=== PATIENT | male | born 2005 | race Caucasian/White ===

== ENCOUNTER 2024-05-27 08:58 | Day surgery (SDC) | payer BC, SELFPAY ==
[2024-05-27] VITALS (9 sets, daily range): BP systolic 103–138; BP diastolic 47–65; PULSE 60–83; RESP 15–20; TEMP 36.6–37.3; O2SAT 99–100; BMI 21.0
--- NOTE | ~2024-05-27 | CT_ITS ---
EXAMINATION: CT ABDOMEN AND PELVIS WITH CONTRAST CLINICAL INFORMATION: Right lower quadrant pain. COMPARISON: None available. TECHNIQUE: Multidetector volumetric images were obtained from the superior aspect of the liver through the pubic symphysis following administration 85 mL of Omnipaque 350 intravenous contrast without reported immediate complications. Sagittal and coronal reformatted images were obtained on the technologist's workstation. Oral contrast: No This CT examination was performed using dose optimization techniques as appropriate, variously including the following: *Automated exposure control *Adjustment of mA and/or kV according to patient size (this includes techniques or standardized protocols for targeted exams where dose is matched to indication/reason for exam; i.e. extremities or head) *Use of iterative reconstruction technique DLP: 368 mGy-cm FINDINGS: LUNG BASES: No acute airspace disease or gross pulmonary nodules in the included lungs. LIVER, GALLBLADDER, AND BILIARY TREE: Liver measures 18 cm. No focal mass. Portal vein and hepatic veins are patent. Intrahepatic portion of the IVC is patent. Fluid-filled gallbladder without pericholecystic fluid collection or gallbladder wall thickening. No intrahepatic or extrahepatic biliary ductal dilatation. PANCREAS: No focal pancreatic lesion. No main pancreatic ductal dilatation. No peripancreatic fluid collections. SPLEEN: 10 cm. No focal lesion. ADRENAL GLANDS: No nodular lesions. KIDNEYS AND URETERS: Normal enhancement pattern. No gross mass. No hydronephrosis. BLADDER: Fluid-filled. GASTROINTESTINAL TRACT: Appendix measures 9 mm in maximum diameter and is fluid-filled. There are multiple radiopaque/metallic structures within the peritoneal cavity some of them perhaps intraluminal small bowel loops. No intestinal obstruction pattern. Trace amount of free fluid in the lower peritoneal pelvic cavity.. No pneumoperitoneum. No pneumatosis intestinalis. Abundant stool within the large intestine. ABDOMINAL WALL: No gross hernia. LYMPH NODES: No lymphadenopathy. VASCULAR: No aneurysm or dissection, abdominal aorta. PELVIC VISCERA: Nonenlarged prostate gland or seminal vesicles. OSSEOUS STRUCTURES: No acute fracture or listhesis. No lytic or blastic lesions. CT/CT abdomen pelvis w IV con IMPRESSION: Concerning early acute noncomplicated appendicitis in the correct clinical settings. Trace amount of free fluid, pelvic peritoneal cavity. Hepatomegaly. Fleischner guidelines were followed. Electronically signed by: Jesse Hedrick MD 05/27/2024 12:19 PM [facility] [place]
[2024-05-27 09:24] LABS: Basophils Percent Auto 0.3 % (0-2); Eosinophils Percent Auto 0.2 % (0-4); Hematocrit 41.6 % (42.0-52.0); Hemoglobin 14.5 g/dl (14.0-18.0); Imm Gran Abs Auto 0.03 X10*3/uL (0.00-0.03); Imm Gran Pct Auto 0.3 % (0.0-0.4); Lymphocytes Absolute Auto 1.7 X10*3/uL (1.2-4.9); Lymphocytes Percent Auto 14.4 % (20-40); MANUAL DIFF FLAG NO; Mean Corpuscular HGB Conc 34.9 g/dl (31.0-36.0); Mean Corpuscular Hemoglobin 29.7 pg (27.0-33.0); Mean Corpuscular Volume 85.1 fL (80.0-98.0); Mean Platelet Volume 11.8 fL (9.4-12.4); Monocytes Absolute Auto 1.1 X10*3/uL (0.1-1.2); Monocytes Percent Auto 9.3 % (2-11); Neutrophils Absolute Auto 8.7 x10*3/uL (2.0-8.3); Neutrophils Percent Auto 75.5 % (45-73); Platelet Count 173 X10*3/uL (160-400); Red Blood Count 4.89 X10*6/uL (4.60-5.80); Red Cell Distribution Width 12.6 % (11.0-16.0); White Blood Count 11.5 X10*3/uL (4.8-10.8)
[2024-05-27 09:40] LABS: Alanine Aminotransferase 18 U/L (0-40); Albumin Level 4.6 g/dL (3.5-5.0); Alkaline Phosphatase 118 U/L (39-117); Anion Gap 13 (12-20); Aspartate Amino Transferase 26 U/L (5-37); Bilirubin Total 0.7 mg/dL (0.0-1.0); Blood Urea Nitrogen 13 mg/dL (9-16); Calcium 9.6 mg/dL (8.4-10.2); Carbon Dioxide 25 mmol/L (22-29); Chloride 104 mmol/L (96-108); Creatinine Clr Calc Pharmacy 110.4; Estimated Glomerular Filt Rate > 60; Glucose Random 110 mg/dL (60-115); Sodium 138 mmol/L (135-145); Total Protein 7.5 g/dL (6.5-8.0)
--- NOTE | 2024-05-27 11:30 | ED_ITS ---
HPI - Abdominal Pain General Chief Complaint: Abdominal Pain Stated Complaint: abd pain Time Seen by Provider: 05/27/24 11:09 Source: patient Limitations: no limitations History of Present Illness ED Provider: Shahnaz Mejia PA-C HPI narrative: 18-year-old male with chronic constipation presents with right lower quadrant pain x1 day. Patient states overnight he developed discomfort, unable to describe the nature of the pain, however indicates it is constant and nonradiating. Pain worse with ambulation. Associated nausea and vomiting. Denies diarrhea, the patient states he is constipated. Denies fever, scrotal swelling or pain, no dysuria. Related Data Allergies Allergy/AdvReac Type Severity Reaction Status Date / Time No Known Allergies Allergy Verified 05/27/24 09:02 Review of Systems Review of Systems Yes all other systems are reviewed and are negative Constitutional: Denies fatigue and Denies fever(s) Cardiovascular: Denies chest pain Respiratory: Denies cough Gastrointestinal: Reports abdominal pain, Reports constipation, Denies diarrhea and Reports nausea Genitourinary: Denies hematuria, Denies dysuria, Denies scrotal swelling and Denies testicular pain Endocrine: Denies fatigue PMFSH Past Medical History Attestation statement: The following information was validated with the patient. Social History Social History Smoked in Last 30 Days: No Use of substances other than those prescribed or required for medical reasons: Yes Substance Use Type: Marijuana Substance Use Frequency: Occasionally Advance Directives: No Advance Directives Information Provided: No Physical Exam ED Vital Signs: Vital Signs - 24 hr 05/27/24 09:01 05/27/24 10:38 Temperature 98.1 F 97.8 F Pulse Rate 83 74 Respiratory Rate 20 18 Blood Pressure 138/65 118/52 L Pulse Oximetry 100 100 Oxygen Delivery Method Room Air Room Air BMI result Body Mass Index 21.0 Const Other: Alert, well in appearance Orientation/consciousness: patient oriented x3 Resp Other: Nonlabored respiration Cardio Other: Normal peripheral perfusion GI Other: Abdomen is soft, nondistended, Focal pain in the right lower quadrant without guarding, positive psoas sign, negative obturator, no rebound tenderness Skin Other: Warm dry no rash Neuro General: patient oriented x3, no focal motor deficits and CN's II-XI intact bilaterally Psych Other: Calm cooperative Course Reevaluation(s) Reevaluation #1: Spoke the radiologist, he is saying the patient has early uncomplicated appendicitis, I am waiting for the formal read before I called for surgical consult Time: 12:19 Consultations Consultation #1: sam Alvares Time: 12:27 Consultation #2: Dr. Alvares is taking the Pt to OR....I placed order ED to surg I already ordered antibiotics Time: 12:50 Medical Decision Making Medical Decision Making MDM Narrative: 18-year-old male with chronic constipation presents with right lower quadrant pain x1 day. Patient states overnight he developed discomfort, unable to describe the nature of the pain, however indicates it is constant and nonradiating. Pain worse with ambulation. Associated nausea. Denies diarrhea, the patient states he is constipated. Denies fever, scrotal swelling or pain, no dysuria. Problem: Constipation History: Per patient I have considered the following differential diagnoses: Constipation, obstruction, appendicitis, torsion , renal colic Plan: Screening labs were already obtained, overall unremarkable, he has a slight leukocytosis. Given distribution of discomfort, I am considering appendicitis. We will obtain a CT scan. Given focal pain, with positive psoas sign, and he did have episodes of vomiting, I do not think this is his chronic constipation at this time. He has no obstructive symptoms to suggest a bowel obstruction. He also has symptoms consistent with torsion, and no related symptoms that would suggest potential renal colic or UTI. I have independently reviewed the following tests: Labs: Slight leukocytosis, not anemic, no electrolyte abnormality CT abdomen and pelvis:EXAMINATION: CT ABDOMEN AND PELVIS WITH CONTRAST CLINICAL INFORMATION: Right lower quadrant pain. COMPARISON: None available. TECHNIQUE: Multidetector volumetric images were obtained from the superior aspect of the liver through the pubic symphysis following administration 85 mL of Omnipaque 350 intravenous contrast without reported immediate complications. Sagittal and coronal reformatted images were obtained on the technologist's workstation. Oral contrast: No This CT examination was performed using dose optimization techniques as appropriate, variously including the following: *Automated exposure control *Adjustment of mA and/or kV according to patient size (this includes techniques or standardized protocols for targeted exams where dose is matched to indication/reason for exam; i.e. extremities or head) *Use of iterative reconstruction technique DLP: 368 mGy-cm FINDINGS: LUNG BASES: No acute airspace disease or gross pulmonary nodules in the included lungs. LIVER, GALLBLADDER, AND BILIARY TREE: Liver measures 18 cm. No focal mass. Portal vein and hepatic veins are patent. Intrahepatic portion of the IVC is patent. Fluid-filled gallbladder without pericholecystic fluid collection or gallbladder wall thickening. No intrahepatic or extrahepatic biliary ductal dilatation. PANCREAS: No focal pancreatic lesion. No main pancreatic ductal dilatation. No peripancreatic fluid collections. SPLEEN: 10 cm. No focal lesion. ADRENAL GLANDS: No nodular lesions. KIDNEYS AND URETERS: Normal enhancement pattern. No gross mass. No hydronephrosis. BLADDER: Fluid-filled. GASTROINTESTINAL TRACT: Appendix measures 9 mm in maximum diameter and is fluid-filled. There are multiple radiopaque/metallic structures within the peritoneal cavity some of them perhaps intraluminal small bowel loops. No intestinal obstruction pattern. Trace amount of free fluid in the lower peritoneal pelvic cavity.. No pneumoperitoneum. No pneumatosis intestinalis. Abundant stool within the large intestine. ABDOMINAL WALL: No gross hernia. LYMPH NODES: No lymphadenopathy. VASCULAR: No aneurysm or dissection, abdominal aorta. PELVIC VISCERA: Nonenlarged prostate gland or seminal vesicles. OSSEOUS STRUCTURES: No acute fracture or listhesis. No lytic or blastic lesions. CT/CT abdomen pelvis w IV con IMPRESSION: Concerning early acute noncomplicated appendicitis in the correct clinical settings. Trace amount of free fluid, pelvic peritoneal cavity. Hepatomegaly. Fleischner guidelines were followed. Electronically signed by: Jesse Hedrick MD 05/27/2024 12:19 PM [facility] [place] Lab Data 05/27/24 09:14 05/27/24 09:14 Labs: Lab Results 05/27/24 Range/Units 09:14 WBC 11.5 H (4.8-10.8) X10*3/uL RBC 4.89 (4.60-5.80) X10*6/uL Hgb 14.5 (14.0-18.0) g/dl Hct 41.6 L (42.0-52.0) % MCV 85.1 (80.0-98.0) fL MCH 29.7 (27.0-33.0) pg MCHC 34.9 (31.0-36.0) g/dl RDW 12.6 (11.0-16.0) % Plt Count 173 (160-400) X10*3/uL MPV 11.8 (9.4-12.4) fL Immature Gran % (Auto) 0.3 (0.0-0.4) % Neut % (Auto) 75.5 H (45-73) % Lymph % (Auto) 14.4 L (20-40) % [place] % (Auto) 9.3 (2-11) % Eos % (Auto) 0.2 (0-4) % Baso % (Auto) 0.3 (0-2) % Lymph # (Auto) 1.7 (1.2-4.9) X10*3/uL [place] # (Auto) 1.1 (0.1-1.2) X10*3/uL Eos # (Auto) 0.0 (0.0-0.4) X10*3/uL Baso # (Auto) 0.0 (0.0-0.2) X10*3/uL Abs Immat Gran (auto) 0.03 (0.00-0.03) X10*3/uL Absolute Neuts (auto) 8.7 H (2.0-8.3) x10*3/uL Absolute Nucleated RBC 0.000 (0.0-0.012) X10*3/uL Nucleated RBC % (auto) 0.0 (0.0-0.2) /100WBC Sodium 138 (135-145) mmol/L Potassium 4.0 (3.3-5.1) mmol/L Chloride 104 (96-108) mmol/L Carbon Dioxide 25 (22-29) mmol/L Anion Gap 13 (12-20) BUN 13 (9-16) mg/dL Creatinine 1.07 (0.5-1.4) mg/dL Estim Creat Clear Calc 110.4 Estimated GFR > 60 Random Glucose 110 (60-115) mg/dL Calcium 9.6 (8.4-10.2) mg/dL Total Bilirubin 0.7 (0.0-1.0) mg/dL AST 26 (5-37) U/L ALT 18 (0-40) U/L Alkaline Phosphatase 118 H (39-117) U/L Total Protein 7.5 (6.5-8.0) g/dL Albumin 4.6 (3.5-5.0) g/dL Medications Administered Generic Name Dose Route Start Last Admin Trade Name Freq PRN Reason Stop Dose Admin Metronidazole 500 mg in 100 mls @ 100 mls/hr 05/27/24 12:31 05/27/24 12:49 Flagyl IV 05/27/24 13:30 100 mls/hr PREOP ONE Administration Discontinued Medications Generic Name Dose Route Start Last Admin Trade Name Bill PRN Reason Stop Dose Admin Ceftriaxone Sodium 2 gm 05/27/24 12:31 05/27/24 12:49 Ceftriaxone Sodium 2 Gm Vial IVPUSH 05/27/24 12:32 2 gm ONCE ONE Administration Iohexol 100 ml 05/27/24 11:39 05/27/24 11:40 Iohexol 350 Mg/Ml 100 Ml Infus..Btl IV 05/27/24 11:40 85 ml ONCE ONE Administration Ketorolac Tromethamine 15 mg 05/27/24 11:19 05/27/24 11:32 Ketorolac Tromethamine 15 Mg/Ml Vial IVPUSH 05/27/24 11:20 15 mg ONCE ONE Administration Discharge Plan Discharge Clinical Impression: Acute appendicitis Patient Disposition: Admitted As Inpatient Print Language: Frisian
[2024-05-27] MEDS: Ketorolac Tromethamine 15 MG/ML VIAL IVPUSH (11:32)
[2024-05-27] MEDS: iohexoL 350 MG/ML 100 ML INFUS..BTL IV (11:40)
[2024-05-27] MEDS: cefTRIAXone sodium 2 GM VIAL IVPUSH (12:49)
[2024-05-27] MEDS: metroNIDAZOLE/NS 500 MG/100 ML PIGGYBACK 100 MG IV (12:49)
--- NOTE | 2024-05-27 13:20 | PC.NURSE ---
Called OR to give report. STRONG NITRIC OPERATOR states that pt. does not have a time yet, and OR will call us for report when they're ready.
--- NOTE | 2024-05-27 14:16 | PC.NURSE ---
RN-to-RN report given to LELA Ospina in Short Stay. Bhavesh states they will be down to take pt. at appx. 15:30.
--- NOTE | 2024-05-27 14:51 | P.HPGS_ITS ---
History of Present Illness History of Present Illness Date of Service: 05/27/24 Chief complaint: Unspecified acute appendicitis Narrative: Joe Pickett is a 18 year old male who commenced/dealing with nonspecific periumbilical pain which has now relocated to right lower quadrant. He has ne joseph had chest pain before. He has not had any unusual diet. No foreign travel. No new drugs. No known sick contacts. Patient was otherwise healthy young man attending college. Chart was reviewed and patient evaluated PMFSH Social History Social History Smoked in Last 30 Days: No Use of substances other than those prescribed or required for medical reasons: Yes Substance Use Type: Marijuana Substance Use Frequency: Occasionally Advance Directives: No Advance Directives Information Provided: No Meds Allergies Allergy/AdvReac Type Severity Reaction Status Date / Time No Known Allergies Allergy Verified 05/27/24 09:02 Physical Exam Vital Signs: Vital Signs: Last Vital Signs Temp 97.8 F 05/27/24 10:38 Pulse 74 05/27/24 10:38 Resp 18 05/27/24 10:38 BP 118/52 L 05/27/24 10:38 Pulse Ox 100 05/27/24 10:38 O2 Del Method Room Air 05/27/24 10:38 BMI result Body Mass Index 21.0 Chest: Other: Chest breath sounds bilaterally, HS 1 in 2 GI: Other: Abdomen is soft, thin, scaphoid. Marked right lower quadrant localized rebound tenderness. Results Results Labs: Short CBC 05/27/24 Range/Units 09:14 WBC 11.5 H (4.8-10.8) X10*3/uL Hgb 14.5 (14.0-18.0) g/dl Hct 41.6 L (42.0-52.0) % Plt Count 173 (160-400) X10*3/uL BMP 05/27/24 09:14 Sodium 138 Potassium 4.0 Chloride 104 Carbon Dioxide 25 BUN 13 Creatinine 1.07 Calcium 9.6 Liver Function 05/27/24 Range/Units 09:14 Total Bilirubin 0.7 (0.0-1.0) mg/dL AST 26 (5-37) U/L ALT 18 (0-40) U/L Alkaline Phosphatase 118 H (39-117) U/L Albumin 4.6 (3.5-5.0) g/dL Assessment and Plan (1) Acute appendicitis: Status: Acute Plan History, and clinical exam, and CT scan findings were all consistent with acute appendicitis. Risks, benefits, and alternatives of laparoscopic possible open appendectomy were reviewed with the patient and included but not limited to bleeding, infection, recurrence, numbness, pain, scarring, bowel or bladder injury or leak and the patient wished to proceed. All questions answered. Arrangements were made for an add on for this case for today. Quality Stroke Does the patient have a stroke diagnosis?: No VTE Prior VTE?: No VTE Risk Level:: Surgical - low VTE Device Contraindication: N/A - Device Ordered VTE Drug Contraindication: Treatment Not Indicated Procedures Date of Service Date of Service: 05/27/24
--- NOTE | 2024-05-27 14:59 | PC.NURSE ---
Pt. picked up by Short Stay
--- NOTE | 2024-05-27 15:41 | P.CONAN_ITS ---
COUNTS INCLUDE 234 BEDS AT THE [facility] Active Problems Active Problems: All Active Problems Acute appendicitis (Acute) Past Medical History Functional capacity: independent ambulation Family History Family history of problems with anesthesia: No Surgical History Surgical History History of facial surgery History of Problems with Anesthesia: No Social History Social History Patient Tobacco Use Status: Never used Tobacco Smoked in Last 30 Days: No Use of substances other than those prescribed or required for medical reasons: Yes Substance Use Type: Marijuana Substance Use Type Other:: last used 05/26 pm Substance Use Frequency: Occasionally Are you DNR?: No Advance Directives: No Advance Directives Information Provided: No Meds Allergies Allergy/AdvReac Type Severity Reaction Status Date / Time No Known Allergies Allergy Verified 05/27/24 09:02 Exam Height,Weight and Vital Signs: Height 6 ft Weight 70.307 kg Last Vital Signs Temp 99.1 F 05/27/24 15:03 Pulse 69 05/27/24 15:03 Resp 15 05/27/24 15:03 BP 122/58 L 05/27/24 15:03 Pulse Ox 99 05/27/24 15:03 O2 Del Method Room Air 05/27/24 15:03 Pertinent Lab Results Pertinent Lab Results: Laboratory Tests 05/27/24 09:14 WBC 11.5 H RBC 4.89 Hgb 14.5 Hct 41.6 L MCV 85.1 MCH 29.7 MCHC 34.9 RDW 12.6 Plt Count 173 MPV 11.8 Immature Gran % (Auto) 0.3 Neut % (Auto) 75.5 H Lymph % (Auto) 14.4 L [place] % (Auto) 9.3 Eos % (Auto) 0.2 Baso % (Auto) 0.3 Lymph # (Auto) 1.7 [place] # (Auto) 1.1 Eos # (Auto) 0.0 Baso # (Auto) 0.0 Abs Immat Gran (auto) 0.03 Absolute Neuts (auto) 8.7 H Absolute Nucleated RBC 0.000 Nucleated RBC % (auto) 0.0 Sodium 138 Potassium 4.0 Chloride 104 Carbon Dioxide 25 Anion Gap 13 BUN 13 Creatinine 1.07 Estim Creat Clear Calc 110.4 Estimated GFR > 60 Random Glucose 110 Calcium 9.6 Total Bilirubin 0.7 AST 26 ALT 18 Alkaline Phosphatase 118 H Total Protein 7.5 Albumin 4.6 Airway TM Dist: >3cm Neck ROM: Full Heart: RRR Lungs: CTA Assessment and Plan Assessment Anesthesia Assessment: Anesthesia Plan Discussed, Smoking Cess. Discussed and Chart Reviewed Final Anesthetic Review Family History of Problems with Anesthesia: No History of Problems with Anesthesia: No NPO: Yes ASA Class: II and Emergency Final Preanesthetic Review: Meds/Allgs Chart Reviewed, Consent Obtained/Reviewed and Anes Risks/Benef Reviewed Patient Risk: Low Procedure Risk: Low Anesthetic Plan Anesthetic Plan: GA Disposition: Standard PACU
--- NOTE | 2024-05-27 17:02 | P.CONAN_ITS ---
[facility] [place] Active Problems Active Problems: All Active Problems Acute appendicitis (Acute) Past Medical History Functional capacity: independent ambulation Family History Family history of problems with anesthesia: No Surgical History Surgical History History of facial surgery History of Problems with Anesthesia: No Social History Social History Patient Tobacco Use Status: Never used Tobacco Smoked in Last 30 Days: No Use of substances other than those prescribed or required for medical reasons: Yes Substance Use Type: Marijuana Substance Use Type Other:: last used 05/26 pm Substance Use Frequency: Occasionally Are you DNR?: No Advance Directives: No Advance Directives Information Provided: No Meds Allergies Allergy/AdvReac Type Severity Reaction Status Date / Time No Known Allergies Allergy Verified 05/27/24 09:02 Exam Height,Weight and Vital Signs: Height 6 ft Weight 70.307 kg Last Vital Signs Temp 99.1 F 05/27/24 15:03 Pulse 69 05/27/24 15:03 Resp 15 05/27/24 15:03 BP 122/58 L 05/27/24 15:03 Pulse Ox 99 05/27/24 15:03 O2 Del Method Room Air 05/27/24 15:03 Pertinent Lab Results Pertinent Lab Results: Laboratory Tests 05/27/24 09:14 WBC 11.5 H RBC 4.89 Hgb 14.5 Hct 41.6 L MCV 85.1 MCH 29.7 MCHC 34.9 RDW 12.6 Plt Count 173 MPV 11.8 Immature Gran % (Auto) 0.3 Neut % (Auto) 75.5 H Lymph % (Auto) 14.4 L [place] % (Auto) 9.3 Eos % (Auto) 0.2 Baso % (Auto) 0.3 Lymph # (Auto) 1.7 [place] # (Auto) 1.1 Eos # (Auto) 0.0 Baso # (Auto) 0.0 Abs Immat Gran (auto) 0.03 Absolute Neuts (auto) 8.7 H Absolute Nucleated RBC 0.000 Nucleated RBC % (auto) 0.0 Sodium 138 Potassium 4.0 Chloride 104 Carbon Dioxide 25 Anion Gap 13 BUN 13 Creatinine 1.07 Estim Creat Clear Calc 110.4 Estimated GFR > 60 Random Glucose 110 Calcium 9.6 Total Bilirubin 0.7 AST 26 ALT 18 Alkaline Phosphatase 118 H Total Protein 7.5 Albumin 4.6 Airway Mallampati Class: II TM Dist: >3cm Neck ROM: Full Heart: RRR Lungs: CTA Assessment and Plan Assessment Anesthesia Assessment: Anesthesia Plan Discussed, Smoking Cess. Discussed and Chart Reviewed Final Anesthetic Review Family History of Problems with Anesthesia: No History of Problems with Anesthesia: No NPO: Yes ASA Class: II and Emergency Final Preanesthetic Review: Meds/Allgs Chart Reviewed, Consent Obtained/Reviewed and Anes Risks/Benef Reviewed Patient Risk: Low Procedure Risk: Low Anesthetic Plan Anesthetic Plan: GA Disposition: Standard PACU
--- NOTE | 2024-05-27 17:18 | P.OP_ITS ---
Operative Note Operative Note Date of Service: 05/27/24 Narrative: Preoperative diagnosis: [] Acute appendicitis Postop diagnosis: [] The same Procedure [] laparoscopic appendectomy Surgeon: [] Giorgio Filament Welder: [] Type of Anesthesia: [] General Indication for surgery: [] Edematous inflamed appendix. No gross evidence of perforation Findings: [] Patient brought to the operating room, placed on operative table supine position, after an adequate level of general anesthesia was induced, the patient's abdomen was prepped and draped in usual sterile fashion. Using a supraumbilical curvilinear incision, Johnson technique was used to insufflate abdominal cavity to 15 mm of CO2. Lower midline and suprapubic ports were placed under direct laparoscopic view, the patient placed in Trendelenburg position, and tilted to the left. Appendix was identified and grasped. Findin gs were as noted above. Appendix were mesentery was sequentially taken down using double firing of ligature device. Appendix was then transected at the cecal base using endoscopic AIDE stapler. Specimen was placed in an Endo-Catch bag, a retrieved through the umbilical port. Abdominal cavity was copiously irrigated and secured hemostasis. All ports removed under direct laparoscopic view. Wounds were closed in the following manner; umbilical wound is fascia reapproximated using interrupted 0 Vicryl sutures. Skin wounds were closed using subcuticular four-0 Vicryl sutures followed by Steri-Strips and sterile dressings. Wounds were infiltrated 0.5% Marcaine at completion. Sponge, needle, and instrument counts were reported correct. Patient tolerated the procedure well and emerged from anesthesia stable condition. EBL minimal
[2024-05-27] MEDS: Acetaminophen 1,000 MG/100 ML PIGGYBACK 400 MG IV (17:40)
[2024-05-27] MEDS: oxyCODONE HCl Immed Release 5 MG TABLET PO (18:12)
--- NOTE | 2024-05-27 18:43 | HO.POSTANES ---
Post Anesthesia Evaluation Post Anesthesia Evaluation Date of Service: 05/27/24 Vital Signs: Vital Signs Temp Pulse Resp BP Pulse Ox O2 Del Method 05/27/24 17:57 97.9 F 67 16 111/59 L 100 Room Air 05/27/24 17:53 97.9 F 67 16 111/59 L 100 Room Air 05/27/24 17:38 60 16 103/47 L 100 Room Air 05/27/24 17:33 62 16 107/50 L 99 Room Air 05/27/24 17:28 65 16 113/52 L 99 Room Air 05/27/24 17:23 98.3 F 73 16 116/57 L 99 Room Air 05/27/24 15:03 99.1 F 69 15 122/58 L 99 Room Air 05/27/24 10:38 97.8 F 74 18 118/52 L 100 Room Air 05/27/24 09:01 98.1 F 83 20 138/65 100 Room Air Anesthesia: General Endotracheal-GETA Mental Status: Awake Pain Control: Satisfactory Nausea/Vomiting: None Hydration: Adequate Anesthesia-Related Issues: No Anes. Related Issues
== END 2024-05-27 18:12 | disposition home or self-care (01) ==
LOC: HO.ED 12:50 → HO.SSS 13:14
PROVIDERS: Emergency Provider Student in an Organized Health Care Education/Training Program; Visit Provider Surgery
PROC: 0DTJ4ZZ Resection of Appendix, Percutaneous Endoscopic Approach (ICD-10-PCS; CPT 44970; principal; 2024-05-27 14:50)
DX: K35.80 Unspecified acute appendicitis (principal); R10.31 Right lower quadrant pain
CPT/HCPCS: 44970; 36415; 74177; 80053; 85025; 88304; 96374; 96375; 99284; 99285; J0131; J0696; J1100; J1836; J1885; J2003; J2250; J2405; J2704; J2795; J3010; Q9967

== ENCOUNTER → 2024-05-27 11:19 | Outpatient (BNV) | payer BC, SELFPAY | PROVIDERS: Emergency Provider Student in an Organized Health Care Education/Training Program; Visit Provider Radiology Diagnostic Radiology | DX: R10.31 Right lower quadrant pain (principal) | CPT/HCPCS: 74177 ==

== ENCOUNTER → 2024-05-27 13:13 | Outpatient (BNV) | payer BC, SELFPAY | PROVIDERS: Emergency Provider Student in an Organized Health Care Education/Training Program; Visit Provider Surgery | DX: K35.80 Unspecified acute appendicitis (principal) | CPT/HCPCS: 44970; 99285 ==